=== PATIENT | female | born 1930 | race Hispanic/Latino ===

== ENCOUNTER 2016-11-13 09:21 | Inpatient (IN) | payer MEDICARE, OTHER ==
[2016-11-13 10:02] VITALS: BMI 23.1
--- NOTE | 2016-11-13 10:07 | ED PDOC ---
Arrival/HPI - General Historian: Patient, Family <Alejandro Morales - Last Filed: 11/13/16 14:57> <Pool Jules - Last Filed: 11/13/16 18:08> - General Chief Complaint: Back Pain Time Seen by Provider: 11/13/16 09:45 - History of Present Illness Narrative History of Present Illness (Text): 11/13/16 10:19 86F with PMHx specifically significant for osteoporosis, easy fractures and compression fractures presents to the ED with c/o lower back pain of 3 months duration, worse in the past week. Patient's daughter at bedside providing translation and history. Patient states that she took a trip to [place] a few weeks ago, returned last week. In [place], she had fallen forward out of a reclining chair for which she went to the emergency room, where they found no fractures or acute injury. She got some injections of 'Voltarelli' for pain, and was sent home. [place] the [place] last week. While she was at home last week, she pulled open the refrigerator door and heard a 'pop.' She has been having the current, sharp, 10/10 back pain since that point. Patient has a history of easy fractures. Patient has seen her marine driller only once , had an appointment with her for tomorrow. PMD: Dr. Moy Area Sales Manager: Sharif Alford PMHx: Questionable seizures based on previous visit notes; rest of history as above 11/13/16 10:28 (Alejandro Morales) Past Medical History - Travel History Have you recently traveled outside [place] w/in the past 3 mons?: Yes If Yes, travel location?: [place] - Infectious Disease Hx of Infectious Diseases: None - Tetanus Immunization Tetanus Immunization: Unknown - Reproductive Menopause: Yes - Cardiac Hx Cardiac Disorders: No - Pulmonary Hx Respiratory Disorders: No - Neurological Hx Neurological Disorder: Yes Hx Seizures: Yes - HEENT Hx HEENT Disorder: Yes (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?) - Musculoskeletal/Rheumatological Hx Musculoskeletal Disorders: Yes (KYPHOSIS,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-15 ) Hx Falls: Yes Hx Osteoporosis: Yes - Genitourinary/Gynecological Hx Genitourinary Disorders: (L LUMPECTOMY) - Psychiatric Hx Substance Use: No - Past Surgical History Past Surgical History: No Previous - Anesthesia Hx Anesthesia: No - Suicidal Assessment Feels Threatened In Home Enviroment: No <Alejandro Morales - Last Filed: 11/13/16 14:57> Family/Social History Family/Social History: No Known Family HX Smoking Status: Never Smoked Hx Alcohol Use: No Hx Substance Use: No Hx Substance Use Treatment: No <Alejandro Morales - Last Filed: 11/13/16 14:57> Allergies/Home Meds <Alejandro Morales - Last Filed: 11/13/16 14:57> <Pool Jules - Last Filed: 11/13/16 18:08> Allergies/Adverse Reactions: Allergies No Known Allergies Allergy (Verified 09/06/13 19:30) Home Medications: Home Meds Medication Instructions Recorded Confirmed No Known Home Med [No Known Home 09/06/13 11/13/16 Med] Review of Systems - Review of Systems Constitutional: Normal. absent: Fatigue, Weight Change, Fevers Eyes: Normal. absent: Vision Changes, Photophobia ENT: Normal. absent: Hearing Changes, Sore Throat Respiratory: Normal. absent: SOB, Cough, Sputum Cardiovascular: Normal. absent: Chest Pain, Orthopnea Gastrointestinal: Normal. absent: Abdominal Pain, Stool Changes, Diarrhea, Nausea, Vomiting, Hematochezia, Hematemesis Genitourinary Female: Normal. absent: Dysuria, Hematuria, Vaginal Bleeding Musculoskeletal: Normal, Back Pain (Back pain worse on the right - sharp pain) Skin: Normal. absent: Rash, Pruritis, Skin Lesions Neurological: Normal. absent: Focal Weakness, Gait Changes Endocrine: Normal. absent: Diaphoresis, Polyuria Hemo/Lymphatic: Normal. absent: Adenopathy, Easy Bleeding, Easy Bruising Psychiatric: Normal. absent: Anxiety, Depression, Suicidal Ideation <Alejandro Morales - Last Filed: 11/13/16 14:57> Physical Exam Temperature: Afebrile Blood Pressure: Hypertensive Pulse: Regular Respiratory Rate: Normal Appearance: Positive for: Well-Appearing, Non-Toxic, Comfortable Pain Distress: None Mental Status: Positive for: Alert and Oriented X 3 - Systems Exam Head: Present: Atraumatic, Normocephalic Pupils: Present: PERRL Extroacular Muscles: Present: EOMI Conjunctiva: Present: Normal Mouth: Present: Moist Mucous Membranes Neck: Present: Normal Range of Motion Respiratory/Chest: Present: Clear to Auscultation, Good Air Exchange. No: Respiratory Distress, Accessory Muscle Use Cardiovascular: Present: Regular Rate and Rhythm, Normal S1, S2. No: Murmurs Abdomen: Present: Normal Bowel Sounds. No: Tenderness, Distention, Peritoneal Signs Back: Present: Paraspinal Tenderness, Pain with Leg Raise (Postive straight leg test) Upper Extremity: Present: Normal Inspection. No: Cyanosis, Edema Lower Extremity: Present: Normal Inspection. No: Edema Neurological: Present: GCS=15, CN II-XII Intact, Speech Normal Skin: Present: Warm, Dry, Normal Color. No: Rashes Psychiatric: Present: Alert, Oriented x 3, Normal Insight, Normal Concentration <Alejandro Morales - Last Filed: 11/13/16 14:57> Medical Decision Making <Alejandro Morales - Last Filed: 11/13/16 14:57> <Pool Jules - Last Filed: 11/13/16 18:08> ED Course and Treatment: 11/13/16 10:24 Impression: 86 y/o F with PMHx specifically significant for osteoporosis, easy fracturing, and compression fractures, c/o lower back pain. Compression Fracture VS Muscle Strain Plan: -- CT Lumbar Spine Without Contrast -- Toradol, Lidocaine Patch, and Tylenol for pain --Reassess Prior Visits: Notes and results from previous visits were reviewed. Previously seen for back pain and questionable seizures 11/13/16 13:37 Reassessed patient. Pain is better, but still present. Thoracolumbar CT shows: Compression fracture at T12 and L3. Patient will be admitted Bridge orders submitted 11/13/16 14:57 (Alejandro Morales) In agreement with resident note, which includes further HPI details. Patient was seen and evaluated with resident, came up with plan and treatment together. On physical exam, patient has paraspinal lower lumber tenderness. Differential: r/o fracture vs. lumbar sprain. 11/13/16 13:37 Case was discussed with Dr. Singh who agrees to admit patient for severe compression fractures. Patient is a fall risk. I discussed this plan with patient and her family. (Pool Jules) - RAD Interpretation Radiology Orders: 11/13/16 10:09 LUMBAR SPINE W/O CONTRAST [CT] Stat - Medication Orders Current Medication Orders: Acetaminophen (Tylenol 325mg Tab) 650 mg PO Q4H PRN PRN Reason: Pain, Mild (1-3) Ketorolac Tromethamine (Toradol) 15 mg IM Q6 PRN PRN Reason: Pain, severe (8-10) Tramadol HCl (Ultram) 50 mg PO TID PRN PRN Reason: Pain, moderate (4-7) Discontinued Medications Acetaminophen (Tylenol 325mg Tab) 650 mg PO STAT STA Stop: 11/13/16 10:12 Last Admin: 11/13/16 10:23 Dose: 650 mg Re-Assess: [facility] Pain/Vitals Document 11/13/16 13:55 MJO (Rec: 11/13/16 14:13 MJO [id number]) Pain Reassessment Is This A Pain ReAssessment? Yes Sleep Is patient sleeping during reassessment? No Presence of Pain Presence of Pain No Ketorolac Tromethamine (Toradol) 15 mg IM STAT STA Stop: 11/13/16 10:12 Last Admin: 11/13/16 10:23 Dose: 15 mg Re-Assess: [facility] Pain Assessment Document 11/13/16 11:23 MJO (Rec: 11/13/16 14:14 MJO [id number]) Pain Reassessment Is this a pain reassessment? Yes Sleep Is patient sleeping during reassessment? No Presence of Pain Presence of Pain No Lidocaine (Lidoderm) 1 ea TD STAT STA Stop: 11/13/16 10:10 Last Admin: 11/13/16 10:23 Dose: 1 ea <Alejandro Morales - Last Filed: 11/13/16 14:57> - Scribe Statement The provider has reviewed the documentation as recorded by the Scribe <Pool Jules - Last Filed: 11/13/16 18:08> - Scribe Statement Melani Davenport Provider Scribe Attestation: All medical record entries made by the Scribe were at my direction and personally dictated by me. I have reviewed the chart and agree that the record accurately reflects my personal performance of the history, physical exam, medical decision making, and the department course for this patient. I have also personally directed, reviewed, and agree with the discharge instructions and disposition. (Pool Jules) Disposition/Present on Arrival - Present on Arrival Any Indicators Present on Arrival: No History of DVT/PE: No History of Uncontrolled Diabetes: No Urinary Catheter: No History Surgical Site Infection Following: None - Disposition Have Diagnosis and Disposition been Completed?: Yes Disposition Time: 12:25 <Alejandro Morales - Last Filed: 11/13/16 14:57> - Disposition Patient Plan: Observation <Pool Jules - Last Filed: 11/13/16 18:08> - Disposition Diagnosis: Compression fracture Disposition: HOSPITALIZED Patient Problems: Current Active Problems Problem Status Onset Compression fracture Acute Condition: FAIR
[2016-11-13] MEDS ORDERED: Lidocaine 5% Patch TD STA (10:09)
--- NOTE | 2016-11-13 12:08 | CT ---
PROCEDURE: CT Lumbar Spine without contrast HISTORY: Lower back pain COMPARISON: None. TECHNIQUE: Axial computed tomography images were obtained of the lumbar spine without the use of intravenous contrast. Coronal and sagittal reformatted images were created and reviewed. Radiation dose: Total exam DLP = 245 mGy-cm. This CT exam was performed using one or more of the following dose reduction techniques: Automated exposure control, adjustment of the mA and/or kV according to patient size, and/or use of iterative reconstruction technique. FINDINGS: VERTEBRAE: There is a severe compression fracture of L3. There is minimal retropulsion of bone into the spinal canal with no significant stenosis. There is also a severe compression fracture of T12 without stenosis. The age of these fractures is uncertain. There was a plain film from 08/21/2016 which showed T12 compression but showed no compression of L3 at that time. DISCS/SPINAL CANAL/NEURAL FORAMINA: L1-2: Unremarkable. L2-3: Unremarkable. L3-4: Unremarkable. L4-5: Unremarkable. L5-S1: Unremarkable. PARASPINAL SOFT TISSUES: Unremarkable. OTHER FINDINGS: None. IMPRESSION: Severe compression fractures of T12 and L3. See comments
[2016-11-13 13:19] LABS: BASO # 0.01 K/mm3 (0.0-2.0); BASO % 0.1 % (0.0-3.0); EOS # 0.2 (0.0-0.7); EOS % 2.1 % (1.5-5.0); GRAN # 5.95 (1.4-6.5); GRAN % 74.9 % (50.0-68.0); HEMATOCRIT 38.9 % (36.0-48.0); LYMPH # 1.4 (1.2-3.4); LYMPH % 17.1 % (22.0-35.0); MEAN CELL VOLUME 94.2 fl (80.0-105.0); MEAN CORPUSCULAR HEMOGLOBIN 30.8 pg (25.0-35.0); MEAN CORPUSCULAR HGB CONC 32.6 g/dl (31.0-37.0); MEAN PLATELET VOLUME 10.3 fl (7.0-11.0); MONO # 0.5 (0.1-0.6); MONO % 5.8 % (1.0-6.0); RED CELL DISTRIBUTION WIDTH 13.3 % (11.5-14.5)
[2016-11-13 13:23] LABS: BLOOD UREA NITROGEN 12 mg/dL (7-21); CARBON DIOXIDE 30 mmol/L (21-33); CHLORIDE 103 mmol/L (98-107); GFR AFRICAN-AMERICAN > 60; GLUCOSE,RANDOM 89 mg/dL (70-110); PHOSPHOROUS 3.8 mg/dL (2.5-4.5); POTASSIUM 3.8 mmol/L (3.6-5.0); SODIUM 140 mmol/L (132-148)
[2016-11-13] MEDS ORDERED: Pneumococcal 23-Valent Vaccine IM ONE (19:53)
--- NOTE | 2016-11-14 01:12 | CON ---
DATE: 11/13/2016 REASON FOR CONSULTATION: Lumbar pain. HISTORY OF PRESENT ILLNESS: This is an 86-year-old female who was admitted earlier today with complaints of low back pain. She said that she has had back pain for the last three to four months. She has had a couple of falls, the last fall was in approximately one month ago, when she fell out off a recliner. She subsequently had a pain and that seem to be getting worse over the last couple of days. She was admitted for further evaluation and treatment. She denies any numbness or tingling down the legs. She denies any weakness. She denies any change in her bowel or bladder habits. PHYSICAL EXAMINATION: On neurologic examination, neurologically, she is intact. She is tolerating active range of motion in both her hips without any pain. She has negative straight leg raises bilaterally. She has good blood flow in both lower extremities with both her feet are well perfused. Evaluation of the lumbar spine show no gross deformity. She does have some midline tenderness to palpation. No significant paraspinal tenderness to palpation is appreciated. LABORATORY DATA: She brings a CAT scan that was done, it shows what looks like a T12 and L3 compression fractures, the age of the fracture is undeterminate with at least 50% compression. She does know significant central canal or foraminal stenosis is appreciated. She does have a [place] x-ray, which showed T12 compression fracture, but L3 compression fracture was not visualized at that time. IMPRESSION: T12 and L3 compression fracture. PLAN: At this point, I recommended a lumbar corset for comfort as well as some physical therapy and pain medication. Should she still have pain, we would recommend a consult with interventional radiology or pain management for possible kyphoplasty, so we will followup with her during this admission. Joaquin Vasquez MD
[2016-11-14] MEDS: Lidocaine 5% Patch TD SCH (18:44)
--- NOTE | 2016-11-15 08:12 | CP.PCM.PN ---
Subjective - Date & Time of Evaluation Date of Evaluation: 11/15/16 Time of Evaluation: 08:09 - Subjective Subjective: Pt awake, alert. c/o back pain VSS Neuro intact Ct lumbar spine: T12 compression fx with significant compression > 50% L3 compression deformity >50% no significant canal or foraminal stenosis Recommend PT for mobilization lumbar corset prn Objective - Vital Signs/Intake and Output Vital Signs (last 24 hours): Temp Pulse Resp BP Pulse Ox 98.3 F 67 20 124/68 99 11/15/16 04:00 11/15/16 04:00 11/15/16 04:00 11/15/16 04:00 11/14/16 17:13 Intake and Output: 11/15/16 11/15/16 06:59 18:59 Intake Total 120 Balance 120 - Medications Medications: Current Medications Acetaminophen (Tylenol 325mg Tab) 650 mg PO Q4H PRN PRN Reason: Pain, Mild (1-3) Calcium/Vitamin D (Oscal-D 250 Mg-125 Units Tab) 2 tab PO DAILY [facility] Ketorolac Tromethamine (Toradol) 15 mg IM Q6 PRN PRN Reason: Pain, severe (8-10) Lidocaine (Lidoderm) 1 ea TD DAILY [facility] Last Admin: 11/14/16 18:44 Dose: 1 ea Tramadol HCl (Ultram) 50 mg PO TID PRN PRN Reason: Pain, moderate (4-7) Last Admin: 11/15/16 01:57 Dose: 50 mg
[2016-11-15] MEDS: Calcium-Vit D 250 mg-125 Units Tab UD PO SCH (09:04)
[2016-11-15] MEDS: Lidocaine 5% Patch TD SCH (09:04)
--- NOTE | 2016-11-15 10:39 | HP ---
CHIEF COMPLAINT AND HISTORY OF PRESENT ILLNESS: This is an 86-year-old female who is coming into the hospital with complaints of back pain. She has a past medical history of osteoporosis. She has had fractures in the past. She states that she has been having lower back pain over the last 3 months, but has been worse over the last week. She came into the hospital with a daughter. The patient states that she had taken the trip to [place] and returned about a week ago. In [place], she had a fall out of a chair and then had gone to the emergency room, they had found no fractures when she gone to the emergency room. She had received an injection for her pain and was sent home. [place] came [place] the [place], she states that the pain has been 10/10 and she thinks that she may have heard a pop in her back when she was opening a refrigerator. She has no complaints of any headaches or dizziness. She states that pain medications did help her symptoms. The patient has no nausea, no vomiting, no fevers, no chills, no headaches. She does have difficulty in walking because of the pain. REVIEW OF SYSTEMS: All other review of systems are within normal limits except what is mentioned. FAMILY HISTORY: No significant family history. ALLERGIES: NO KNOWN DRUG ALLERGIES. HOME MEDICATIONS: She is not on any significant medications. SOCIAL HISTORY: She is , lives with her . She does not smoke or drink. PHYSICAL EXAMINATION: VITAL SIGNS: Temperature is 98, pulse of 77, respirations 18, blood pressure 142/77, height is 4 feet 8 inches, weight 103 pounds. BMI is 23.1. GENERAL: The patient lying in bed, uncomfortable, and in no acute distress. HEENT: Atraumatic and normocephalic. Anicteric sclerae. Moist mucosa. Parkway conjunctivae. No oral lesions. NECK: No JVD, anterior and posterior adenopathy, thyromegaly, or bruits. CARDIOVASCULAR: S1 and S2 regular. No murmur, rubs, or gallop. LUNGS: Clear to auscultation bilaterally. No wheezes, rales, or rhonchi. ABDOMEN: Bowel sounds are positive. Soft, nontender and nondistended. No hepatosplenomegaly. No rebound and no guarding. EXTREMITIES: No cyanosis, clubbing, or edema. NEUROLOGIC: No facial asymmetry. Tongue is midline. No uvula deviation. Power is 5/5 upper extremity and lower extremity. Sensation intact in upper extremity and lower extremity. PSYCHIATRIC: She is awake, alert and oriented x3. No anxiety or depression. She has normal affect. GENITOURINARY: No CVA tenderness. VASCULAR: 2+ pulses in the carotid pulses and pedal pulses. SKIN: No erythema or nodules SPINE: Shows normal curvature. EXTREMITIES: No Cyanosis and clubbing, no edema. She has point tenderness in the lower part of the back. LABORATORY DATA: White count is 8.0 and hemoglobin is 12.7. Chemistry shows creatinine is 0.5. DIAGNOSTIC DATA: A CT of the back shows a severe compression fracture of L3. ASSESSMENT: 1. L3 compression fracture. 2. Osteoporosis. 3. Fall. PLAN: The patient is currently comfortable. Pain medications are helping her pain. She was seen by Dr. Vasquez, I appreciate his input. The patient is on Lidoderm patch. She is on Tylenol. She is going to continue with Ultram. She is on a regular diet. The patient was seen by Physical Therapy. We will see if the patient qualified for the transitional care unit. I did speak to the patient's daughter, Siria to give an update as she qualifies to the transitional care unit. We will most likely discharge her there for further pain management and rehabilitation. The patient will need check vitamin D. I have also placed her on calcium and vitamin D for osteoporosis. bisphosphate as an outpatient but was hold off as the patient has an acute fracture. Bradley Pleitez MD
--- NOTE | 2016-11-15 23:31 | CP.PCM.PN ---
Subjective - Date & Time of Evaluation Date of Evaluation: 11/15/16 Time of Evaluation: 09:00 - Subjective Subjective: Complaining of back pain. Compression fracture T12, L3 vertebrae. S/P fall. Able to ambulate. Objective - Vital Signs/Intake and Output Vital Signs (last 24 hours): Temp Pulse Resp BP Pulse Ox 98 F 68 18 123/68 93 L 11/15/16 16:00 11/15/16 16:00 11/15/16 16:00 11/15/16 16:00 11/15/16 16:00 Intake and Output: 11/15/16 11/16/16 18:59 06:59 Intake Total 480 620 Balance 480 620 - Medications Medications: Current Medications Acetaminophen (Tylenol 325mg Tab) 650 mg PO Q4H PRN PRN Reason: Pain, Mild (1-3) Calcium/Vitamin D (Oscal-D 250 Mg-125 Units Tab) 2 tab PO DAILY [facility] Last Admin: 11/15/16 09:04 Dose: 2 tab Ketorolac Tromethamine (Toradol) 15 mg IM Q6 PRN PRN Reason: Pain, severe (8-10) Lidocaine (Lidoderm) 1 ea TD DAILY [facility] Last Admin: 11/15/16 09:04 Dose: 1 ea Tramadol HCl (Ultram) 50 mg PO TID PRN PRN Reason: Pain, moderate (4-7) Last Admin: 11/15/16 19:56 Dose: 50 mg - Constitutional Appears: Chronically Ill - Head Exam Head Exam: ATRAUMATIC, NORMAL INSPECTION, NORMOCEPHALIC - Eye Exam Eye Exam: Normal appearance Pupil Exam: NORMAL ACCOMODATION - ENT Exam ENT Exam: Mucous Membranes Moist, Normal Exam - Neck Exam Neck Exam: Normal Inspection - Respiratory Exam Respiratory Exam: Clear to Ausculation Bilateral, NORMAL BREATHING PATTERN - Cardiovascular Exam Cardiovascular Exam: REGULAR RHYTHM, +S1, +S2 - GI/Abdominal Exam GI & Abdominal Exam: Soft, Normal Bowel Sounds - Extremities Exam Extremities Exam: Normal Capillary Refill, Normal Inspection - Neurological Exam Neurological Exam: Alert, CN II-XII Intact, Oriented x3 - Psychiatric Exam Psychiatric exam: Normal Affect - Skin Skin Exam: Dry, Normal Color, Warm Assessment and Plan - Assessment and Plan (Free Text) Assessment: 1. Compression fracture T12, L3 2. status post fall 3. bacl pain 4. osteoporosis Plan : orhto consult Dr. Holder requested. Note reviewed. Conservative management. pain control with percocet prn. lumbar corset. bedside PT.
[2016-11-16] MEDS: Calcium-Vit D 250 mg-125 Units Tab UD PO SCH (09:34)
[2016-11-16] MEDS: Lidocaine 5% Patch TD SCH (09:34)
[2016-11-16] MEDS ORDERED: Simethicone 80 mg Chewtab PO STA (22:34)
--- NOTE | 2016-11-16 22:34 | CP.PCM.PN ---
Subjective - Date & Time of Evaluation Date of Evaluation: 11/16/16 Time of Evaluation: 22:32 - Subjective Subjective: Patient was seen at bedside. She complained of gas in stomach. Has no other complaints. Denies chest pain, sob, nausea, sweating , palpitations. ROS:Negative except as mentioned above. Medical record was reviewed. This 86 year old woman was admitted with backpain, fall , L3 compression fracture. Has PMH of osteoporosis, multiple fractures. Objective - Vital Signs/Intake and Output Vital Signs (last 24 hours): Temp Pulse Resp BP Pulse Ox 98.7 F 113 H 20 137/71 92 L 11/16/16 16:52 11/16/16 16:52 11/16/16 16:52 11/16/16 16:52 11/16/16 16:52 Intake and Output: 11/16/16 11/17/16 18:59 06:59 Intake Total 480 360 Balance 480 360 - Medications Medications: Current Medications Acetaminophen (Tylenol 325mg Tab) 650 mg PO Q4H PRN PRN Reason: Pain, Mild (1-3) Calcium/Vitamin D (Oscal-D 250 Mg-125 Units Tab) 2 tab PO DAILY [facility] Last Admin: 11/16/16 09:34 Dose: 2 tab Ketorolac Tromethamine (Toradol) 15 mg IM Q6 PRN PRN Reason: Pain, severe (8-10) Lidocaine (Lidoderm) 1 ea TD DAILY [facility] Last Admin: 11/16/16 09:34 Dose: 1 ea Tramadol HCl (Ultram) 50 mg PO TID PRN PRN Reason: Pain, moderate (4-7) Last Admin: 11/16/16 20:11 Dose: 50 mg - Constitutional Appears: Well, No Acute Distress - Head Exam Head Exam: ATRAUMATIC, NORMAL INSPECTION, NORMOCEPHALIC - Eye Exam Eye Exam: Normal appearance - ENT Exam ENT Exam: Normal External Ear Exam - Neck Exam Neck Exam: Normal Inspection - Respiratory Exam Respiratory Exam: NORMAL BREATHING PATTERN - Cardiovascular Exam Cardiovascular Exam: absent: JVD - GI/Abdominal Exam GI & Abdominal Exam: absent: Distended - Rectal Exam Rectal Exam: Deferred - Exam Additional comments: Deferred. - Extremities Exam Extremities Exam: Normal Inspection - Back Exam Back Exam: NORMAL INSPECTION Additional comments: No deformity. - Neurological Exam Neurological Exam: Alert, Awake, Oriented x3 - Psychiatric Exam Psychiatric exam: Normal Affect, Normal Mood - Skin Skin Exam: Normal Color Assessment and Plan - Assessment and Plan (Free Text) Assessment: Gas pains. Back pain. L3 compression fracture. Osteoporosis. Hx multiple fractures. Plan: Simethicone 80 mg PO stat. Continue present management.
[2016-11-17 08:30] VITALS: BP 125/75; PULSE 73; RESP 18; TEMP 98.1; O2SAT 94
[2016-11-17] MEDS: Calcium-Vit D 250 mg-125 Units Tab UD PO SCH (09:44)
[2016-11-17] MEDS: Lidocaine 5% Patch TD SCH (09:44)
[2016-11-17] MEDS ORDERED: POLYETHYLENE GLYCOL 3350 17 GM/Dose PACKET PO SCH (13:00)
--- NOTE | 2016-11-20 19:16 | CP.PCM.PN ---
Subjective - Date & Time of Evaluation Date of Evaluation: 11/16/16 Time of Evaluation: 10:00 - Subjective Subjective: Comfortable in chair.Pain on turning or bending. Able to ambulate without difficulty. Abdominal corset with patient. No wearing. Objective - Vital Signs/Intake and Output Vital Signs (last 24 hours): Temp Pulse Resp BP Pulse Ox 98.1 F 73 18 125/75 94 L 11/17/16 08:29 11/17/16 08:11/17/16 08:11/17/16 08:11/17/16 08:29 - Constitutional Appears: Well, Non-toxic - Head Exam Head Exam: ATRAUMATIC, NORMAL INSPECTION, NORMOCEPHALIC - Eye Exam Eye Exam: Normal appearance Pupil Exam: NORMAL ACCOMODATION, PERRL - ENT Exam ENT Exam: Mucous Membranes Moist, Normal Exam - Neck Exam Neck Exam: Normal Inspection - Respiratory Exam Respiratory Exam: Clear to Ausculation Bilateral, NORMAL BREATHING PATTERN - Cardiovascular Exam Cardiovascular Exam: REGULAR RHYTHM, +S1, +S2 - GI/Abdominal Exam GI & Abdominal Exam: Soft, Normal Bowel Sounds - Extremities Exam Extremities Exam: Normal Capillary Refill, Normal Inspection - Back Exam Back Exam: NORMAL INSPECTION - Neurological Exam Neurological Exam: Alert, Awake, CN II-XII Intact, Normal Gait, Oriented x3 - Psychiatric Exam Psychiatric exam: Normal Mood - Skin Skin Exam: Normal Color, Warm Assessment and Plan - Assessment and Plan (Free Text) Assessment: Assessment: 1. Compression fracture T12, L3 2. status post fall 3. back pain 4. osteoporosis 5. Granulocytosis Plan : orhto reccomendations - Conservative management. pain control with percocet prn. lumbar corset bedside. advised to wear. bedside PT. discharge planning.
--- NOTE | 2016-11-20 20:13 | DS ---
DATE: 11/17/2016 DISCHARGE DIAGNOSES: 1. Compression fracture, T12-L3. 2. Status post fall. 3. Chronic back pain. 4. Osteoporosis. 5. Granulocytosis. HOSPITAL COURSE: The patient was admitted with new compression fracture of vertebra. Ortho consultation for Dr. Vasquez is requested. Conservative management was recommended and she was advised to bear the lumbar corset. Bedside physical therapy was provided. Pain was controlled with Percocet. She was able to ambulate without difficulty during hospitalization. PHYSICAL EXAMINATION AT DISCHARGE: GENERAL: Comfortable in bed, in no acute distress. VITAL SIGNS: Temperature 98.7, heart rate 80 per minute, respiratory rate 16 per minute. HEENT: Oral mucosa moist. NECK: Supple. No lymphadenopathy. CHEST: Air entry present and equal bilateral. No added sound. CARDIOVASCULAR: S1 and S2 normal. No murmur and no gallop. ABDOMEN: Soft and nontender. No hepatosplenomegaly. EXTREMITIES: No edema. LABORATORY DATA: White count 8000, hemoglobin is 12.7, hematocrit 38.9, platelet count 240, granulocyte 74% and lymphocyte 17%. Sodium 140, potassium 3.8 and creatinine 0.5. CONDITION ON DISCHARGE: Stable. DISCHARGE DISPOSITION: Discharged home. DIET: Regular. MEDICATIONS: Continue home medications: Tylenol 650 q. 4 hours p.r.n.; Percocet 10 mg q. 6 hours p.r.n., prescription given for 15 tablet; Colace 100 mg p.o. b.i.d.; calcium and vitamin D and Lidoderm patch as needed. Advised to follow up with Dr. Moy in 1 week, advised to follow up with Dr. Vasquez. Discussed with the daughter at length. She wants the patient to go to subacute rehab. Physical therapy cleared the patient for discharge home as she could walk without any problem. Discussed with the outsole caser. He had a meeting with the daughter, with skilled nursing case manager, explained to the daughter that she does not qualify for subacute rehab right now. She agreed to take the patient home. Discussed with the staff nurse, discussed with the patient, discussed with the daughter and discussed with the skilled nursing case manager. Time spent in preparing discharge and coordinating care 55 minutes. Ashley Go MD
== END 2016-11-17 15:42 | disposition home health service (06) | DRG 544 ==
LOC: ED 09:21 → ERH 12:25 → 5RSO 13:49 → OBSVTOIN 11-14 22:51 → 5RNO 11-15 10:58
PROVIDERS: ADMIT Internal Medicine Nephrology; ATTEND Internal Medicine Nephrology
DX: M48.56XA Collapsed vertebra, not elsewhere classified, lumbar region, initial encounter for fracture (principal); R26.2 Difficulty in walking, not elsewhere classified; M81.0 Age-related osteoporosis without current pathological fracture; Z91.81 History of falling; M40.209 Unspecified kyphosis, site unspecified; Z86.69 Personal history of other diseases of the nervous system and sense organs; R40.2412 Glasgow coma scale score 13-15, at arrival to emergency department; M48.54XD Collapsed vertebra, not elsewhere classified, thoracic region, subsequent encounter for fracture with routine healing

== ENCOUNTER 2017-01-04 14:09 | Inpatient (IN) | payer MEDICARE, OTHER ==
--- NOTE | 2017-01-04 15:43 | ED PDOC ---
Arrival/HPI <Nilsa Roman - Last Filed: 01/04/17 22:43> - General Historian: Patient, Family - History of Present Illness Symptom Onset: Gradual Symptom Course: Worsening Quality: Aching, Throbbing <Melissa Jasmine - Last Filed: 01/05/17 00:38> - General Chief Complaint: Shortness Of Breath Time Seen by Provider: 01/04/17 14:59 - History of Present Illness Narrative History of Present Illness (Text): 01/04/17 15:33 86yr old female presents today with sob and cough. pt with low back pain s/p epidural 2 days ago for compression fractures. no cp. pt c/o upper abdominal pain. c/o cough. c/o bilateral leg swelling. family states patient hasn't been as active as usual since compression fractures of back. no dizziness or weakness. c/o bilateral lower leg pain. no headache. no n/v/d. (Melissa Jasmine) Past Medical History - Provider Review Nursing Documentation Reviewed: Yes - Travel History Have you recently traveled outside [place] w/in the past 3 mons?: No - Infectious Disease Hx of Infectious Diseases: None - Tetanus Immunization Tetanus Immunization: Unknown - Cardiac Hx Cardiac Disorders: No Hx Peripheral Edema: Yes (ble+1) - Pulmonary Hx Respiratory Disorders: No - Neurological Hx Neurological Disorder: Yes Hx Seizures: (family uncertain) - HEENT Hx HEENT Disorder: Yes Hx Macular Degeneration: Yes Other/Comment: injections to eye once amonth for macular degeneration - Renal Hx Renal Disorder: No - Endocrine/Metabolic Hx Endocrine Disorders: No - Hematological/Oncological Hx Blood Disorders: No - Integumentary Hx Dermatological Disorder: No - Musculoskeletal/Rheumatological Hx Musculoskeletal Disorders: Yes (KYPHOSIS,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- ) Hx Arthritis: Yes Hx Falls: Yes (fell recently in [place]) Hx Unsteady Gait: Yes - Gastrointestinal Hx Gastrointestinal Disorders: No - Genitourinary/Gynecological Hx Genitourinary Disorders: (L LUMPECTOMY benign over 20 yrs ago) - Psychiatric Hx Psychophysiologic Disorder: No Hx Substance Use: No - Past Surgical History Past Surgical History: No Previous - Anesthesia Hx Anesthesia: No - Suicidal Assessment Feels Threatened In Home Enviroment: No <Melissa Jasmine - Last Filed: 01/05/17 00:38> Family/Social History - Physician Review Nursing Documentation Reviewed: Yes Family/Social History: Unknown Family HX Smoking Status: Unknown If Ever Smoked Hx Alcohol Use: No Hx Substance Use: No Hx Substance Use Treatment: No <Melissa Jasmine - Last Filed: 01/05/17 00:38> Allergies/Home Meds <Nilsa Roman - Last Filed: 01/04/17 22:43> <Melissa Jasmine - Last Filed: 01/05/17 00:38> Allergies/Adverse Reactions: Allergies No Known Allergies Allergy (Unverified 01/04/17 14:59) Home Medications: Home Meds Medication Instructions Recorded Confirmed Unobtainable 01/04/17 01/04/17 Review of Systems - Review of Systems Constitutional: Fevers. absent: Fatigue ENT: absent: Sinus Congestion Respiratory: SOB, Cough Cardiovascular: absent: Chest Pain, Palpitations Gastrointestinal: Abdominal Pain. absent: Constipation, Diarrhea, Nausea, Vomiting Genitourinary Female: absent: Dysuria, Frequency, Hematuria Musculoskeletal: Back Pain. absent: Arthralgias, Neck Pain Skin: absent: Rash, Pruritis Neurological: absent: Headache, Dizziness Psychiatric: absent: Anxiety <Melissa Jasmine - Last Filed: 01/05/17 00:38> Physical Exam Vital Signs Reviewed: Yes Temperature: Afebrile Blood Pressure: Normal Pulse: Regular Respiratory Rate: Normal Appearance: Positive for: Well-Appearing, Non-Toxic, Comfortable Pain Distress: None Mental Status: Positive for: Alert and Oriented X 3 - Systems Exam Head: Present: Atraumatic Mouth: Present: Moist Mucous Membranes Neck: Present: Normal Range of Motion Respiratory/Chest: Present: Good Air Exchange, Rales, Rhonchi, Tachypneic. No: Clear to Auscultation, Respiratory Distress, Accessory Muscle Use, Wheezes, Tender to Palpation Cardiovascular: Present: Regular Rate and Rhythm. No: Tachycardic, Muffled Abdomen: Present: Tenderness (minimal epigastric tenderness, ruq, luq tenderness ), Normal Bowel Sounds. No: Distention, Peritoneal Signs, Rebound, Guarding Back: Present: Normal Inspection, Other (no erythema or tendernes around epidural site. ). No: Midline Tenderness, Paraspinal Tenderness Upper Extremity: Present: Normal ROM Lower Extremity: Present: CALF TENDERNESS, NORMAL PULSES, Normal ROM, Tenderness , Swelling, Neurovascularly Intact, Capillary Refill < 2 s. No: Erythema, Deformity Neurological: Present: GCS=15 Skin: Present: Warm, Dry, Normal Color. No: Rashes Psychiatric: Present: Alert, Oriented x 3 <Melissa Jasmine T - Last Filed: 01/05/17 00:38> Vital Signs Temp Pulse Resp BP Pulse Ox 01/04/17 21:58 77 18 142/60 98 01/04/17 17:30 98.1 F 83 20 133/69 01/04/17 15:55 20 01/04/17 15:04 98.4 F 01/04/17 14:36 98.0 F 84 17 123/52 L 98 Medical Decision Making <Nilsa Roman - Last Filed: 01/04/17 22:43> <Melissa Jasmine - Last Filed: 01/05/17 00:38> ED Course and Treatment: 01/04/17 15:54 86yr old female with cough and sob and back pain with hx of compression fracture. cbc wnl cmp wnl trop wnl vbg; wnl ekg; NSR at 88BPM no st elevations; normal axis, normal intervals. cxr: no infiltrate bnp: wnl venous duplex b/l lower legs; FINDINGS: The visualized deep venous systems of both lower extremities are sonographically normal and compressible. Normal wave forms and augmentation are seen. There is no sonographic evidence for deep venous thrombosis in the visualized segments of both lower extremities. IMPRESSION: No sonographic evidence for deep venous thrombosis in the visualized segments of both lower extremities. CT: FINDINGS: Lower thorax: Mild atelectatic changes are identified at the lung bases. There is coronary artery calcification. ABDOMEN: Liver: Unremarkable. No mass. Gallbladder and bile ducts: The gallbladder is mildly distended, without discrete gallstones. Pancreas: Atrophic changes are identified of the pancreas. Spleen: No splenomegaly. Adrenals: There is a stable hypodense left adrenal nodule measuring 2.1 x 1.8 cm. This is suggestive of an adenoma. Kidneys and ureters: No obstructing stones. No hydronephrosis. Stomach and bowel: Significant material is identified within the colon. No significant small bowel distention. Appendix: No findings to suggest acute appendicitis. PELVIS: Bladder: No stones. Reproductive: Unremarkable as visualized. ABDOMEN and PELVIS: Intraperitoneal space: There is minimal free fluid within the pelvis. Bones/joints: Severe compression fractures are identified at the T12 and L3 vertebral levels, with mild compression fractures at L1, L2, L5, and T11. There is a mild progressive loss of vertebral height at the L1 vertebral level. Osteopenia. Hypertrophic degenerative changes are noted within the spine. Soft tissues:A prominent calcification is visualized within the right breast. Vasculature: There is atherosclerotic calcification of the abdominal aorta. No abdominal aortic aneurysm. Lymph nodes: Small retroperitoneal lymph nodes are identified, without significant lymphadenopathy. There is no significant intrapelvic lymphadenopathy. IMPRESSION: 1. There is a stable hypodense left adrenal nodule measuring 2.1 x 1.8 cm. This is suggestive of an adenoma. 2. There is minimal free fluid within the pelvis. 3. Severe compression fractures are identified at the T12 and L3 vertebral levels, with mild compression fractures at L1, L2, L5, and T11. There is a mild progressive loss of vertebral height at the L1 vertebral level. 4. The gallbladder is mildly distended, without discrete gallstones. 5. Incidental/non-acute findings are described above. with morphine; pt with slight improvement in pain. case discussed with dr. lloyd; accepts admission for intractable back pain, abdominal pain, distended gb. will consult dr. springer. impression: intractable back pain, abdominal pain admit remote tele (Melissa Jasmine) - Lab Interpretations Lab Results: 01/04/17 15:40 01/04/17 15:40 Lab Results 01/04/17 16:45: Urine Color Yellow, Urine Appearance Clear, Urine pH 7.5, Ur Specific Friendly 1.010, Urine Protein Negative, Urine Glucose (UA) Negative, Urine Ketones Negative, Urine Blood Negative, Urine Nitrate Negative, Urine Bilirubin Negative, Urine Urobilinogen 0.2, Ur Leukocyte Esterase Trace H, Urine RBC 0 - 2, Urine WBC 2 - 5, Ur Epithelial Cells 3 - 4 01/04/17 15:40: pO2 115 H, VBG pH 7.32, VBG pCO2 64.0 H, VBG HCO3 33.0 H, VBG Total CO2 35.0 H, VBG O2 Sat (Calc) 99.4 H, VBG Base Excess 4.9 H, VBG Potassium 4.0, Sodium 139.0, Chloride 105.0, Glucose 113 H, Lactate 1.2, FiO2 21.0, Venous Blood Potassium 4.0 01/04/17 15:40: WBC 8.7, RBC 3.88, Hgb 11.9 L, Hct 37.5, MCV 96.6, MCH 30.7, MCHC 31.7, RDW 13.7, Plt Count 268, MPV 10.7, Gran % 75.5 H, Lymph % (Auto) 13.1 L, [place] % (Auto) 8.6 H, Eos % (Auto) 2.5, Baso % (Auto) 0.3, Gran # 6.57 H , Lymph # 1.1 L, [place] # 0.8 H, Eos # 0.2, Baso # 0.03 01/04/17 15:40: Sodium 141, Chloride 103, Potassium 3.9, Carbon Dioxide 31, Anion Gap 11, BUN 14, Creatinine 0.5 L, Est GFR ( Amer) > 60, Est GFR ( Non-Af Amer) > 60, Random Glucose 112 H, Calcium 8.7, Total Bilirubin 0.8, AST 22, ALT 29, Alkaline Phosphatase 73, Lactate Dehydrogenase 451, Total Creatine Kinase 26 L, Troponin I < 0.01, NT-Pro-B Natriuret Pep 294, Total Protein 6.5, Albumin 3.7, Globulin 2.8, Albumin/Globulin Ratio 1.3, Lipase 17 L - RAD Interpretation Radiology Orders: 01/04/17 14:59 CHEST PORTABLE [RAD] Stat 01/04/17 15:32 DUPLEX LOWER EXTRM VEIN BILAT [US] Stat 01/04/17 16:08 ABD & PELVIS W/O PO OR IV CONT [CT] Stat - Medication Orders Current Medication Orders: Discontinued Medications Morphine Sulfate (Morphine) 1 mg IVP STAT STA Stop: 01/04/17 16:42 Last Admin: 01/04/17 17:06 Dose: 1 mg REAGAN Pain Assessment Document 01/04/17 17:06 MB (Rec: 01/04/17 17:25 MB [id number]) Pain Reassessment Is this a pain reassessment? No Sleep Is patient sleeping during reassessment? No Presence of Pain Presence of Pain Yes Pain Scale Used Pain Scale Used Numeric Location Left, Right or Bilateral Bilateral Pain Location Body Site Abdomen Description Description Constant Intensity of Pain at present 6 Acceptable Level of Pain 0 Pain Behavior Facial Grimacing Aggravating Factors Changing Position Alleviating Factors/Management Medication Techniques Alleviating Factors Medication IVP Administration Document 01/04/17 17:06 MB (Rec: 01/04/17 17:25 MB [id number]) Charges for Administration # of IVP Administrations 1 Re-Assess: REAGAN Pain Assessment Document 01/04/17 18:06 SZA (Rec: 01/04/17 18:31 SZA [id number]) Pain Reassessment Is this a pain reassessment? Yes Sleep Is patient sleeping during reassessment? No Presence of Pain Presence of Pain Yes Pain Scale Used Pain Scale Used Numeric Description Intensity of Pain at present 3 Morphine Sulfate (Morphine) 1 mg IVP STAT STA Stop: 01/04/17 21:51 Last Admin: 01/04/17 22:18 Dose: 1 mg [facility] Pain Assessment Document 01/04/17 22:18 JOL (Rec: 01/04/17 22:19 JOL [id number]) Pain Reassessment Is this a pain reassessment? No Sleep Is patient sleeping during reassessment? No Presence of Pain Presence of Pain Yes Pain Scale Used Pain Scale Used Numeric Location Upper or Lower Lower Pain Location Body Site Back Description Intensity of Pain at present 8 Pain Behavior Restlessness Facial Grimacing IVP Administration Document 01/04/17 22:18 JOL (Rec: 01/04/17 22:19 JOL [id number]) Charges for Administration # of IVP Administrations 1 Disposition/Present on Arrival - Disposition Have Diagnosis and Disposition been Completed?: Yes Disposition Time: 22:43 Patient Plan: Admission <Nilsa Roman - Last Filed: 01/04/17 22:43> - Present on Arrival Any Indicators Present on Arrival: No History of DVT/PE: No History of Uncontrolled Diabetes: No Urinary Catheter: No History of Decub. Ulcer: No History Surgical Site Infection Following: None - Disposition Have Diagnosis and Disposition been Completed?: Yes Patient Plan: Admission <Melissa Jasmine - Last Filed: 01/05/17 00:38> - Disposition Diagnosis: Abdominal pain, Back pain Disposition: HOSPITALIZED Patient Problems: Current Active Problems Problem Status Onset Abdominal pain Acute Back pain Acute Condition: FAIR
[2017-01-04 16:31] LABS: VENOUS BLOOD GAS BASE EXCESS 4.9 mmol/L (0.0-2.0); VENOUS BLOOD PH 7.32 (7.32-7.43)
[2017-01-04 16:34] LABS: BASO # 0.03 K/mm3 (0.0-2.0); BASO % 0.3 % (0.0-3.0); EOS # 0.2 (0.0-0.7); EOS % 2.5 % (1.5-5.0); GRAN # 6.57 (1.4-6.5); GRAN % 75.5 % (50.0-68.0); HEMATOCRIT 37.5 % (36.0-48.0); LYMPH # 1.1 (1.2-3.4); LYMPH % 13.1 % (22.0-35.0); MEAN CELL VOLUME 96.6 fl (80.0-105.0); MEAN CORPUSCULAR HEMOGLOBIN 30.7 pg (25.0-35.0); MEAN CORPUSCULAR HGB CONC 31.7 g/dl (31.0-37.0); MEAN PLATELET VOLUME 10.7 fl (7.0-11.0); MONO # 0.8 (0.1-0.6); MONO % 8.6 % (1.0-6.0); RED CELL DISTRIBUTION WIDTH 13.7 % (11.5-14.5); WHITE BLOOD COUNT 8.7 10^3/ul (4.5-11.0)
[2017-01-04] MEDS ORDERED: Morphine 2 mg/ml ISec IVP STA ×2 (16:41→21:50)
[2017-01-04 16:44] LABS: ALB/GLOB RATIO 1.3 (1.1-1.8); ALKALINE PHOSPHATASE 73 U/L (38-126); ALT/SGPT 29 U/L (7-56); AST/SGOT 22 U/L (14-36); BILIRUBIN,TOTAL 0.8 mg/dL (0.2-1.3); BLOOD UREA NITROGEN 14 mg/dL (7-21); CALCIUM 8.7 mg/dL (8.4-10.5); CARBON DIOXIDE 31 mmol/L (21-33); CHLORIDE 103 mmol/L (98-107); GFR AFRICAN-AMERICAN > 60; GLUCOSE,RANDOM 112 mg/dL (70-110); LIPASE 17 U/L (23-300); POTASSIUM 3.9 mmol/L (3.6-5.0); SODIUM 141 mmol/L (132-148); TOTAL PROTEIN 6.5 g/dL (5.8-8.3)
[2017-01-04 17:03] LABS: TROPONIN I < 0.01 ng/mL
[2017-01-04 17:30] LABS: PH,URINE 7.5 (4.7-8.0); URINE BILIRUBIN NEGATIVE (NEGATIVE); URINE BLOOD NEGATIVE (NEGATIVE); URINE GLUCOSE (UA) NEGATIVE (NEGATIVE); URINE KETONE NEGATIVE (NEGATIVE); URINE LEUKOCYTE ESTERASE TRACE Leu/uL (NEGATIVE); URINE PROTEIN NEGATIVE mg/dL (<30 mg/dL); URINE UROBILINOGEN 0.2 E.U./dL (<1 E.U./dL)
[2017-01-04 17:40] LABS: URINE APPEARANCE CLEAR (CLEAR); URINE COLOR YELLOW (YELLOW)
[2017-01-04 17:49] LABS: URINE RBC 0 - 2 /hpf (0-2)
--- NOTE | 2017-01-04 19:12 | US ---
HISTORY: Leg pain and swelling. Evaluate for DVT PHYSICIAN(S): Steven Kurtz MD. TECHNIQUE: Duplex sonography and color-flow Doppler with graded compression were used to evaluate the deep venous systems of both lower extremities. FINDINGS: The visualized deep venous systems of both lower extremities are sonographically normal and compressible. Normal wave forms and augmentation are seen. There is no sonographic evidence for deep venous thrombosis in the visualized segments of both lower extremities. IMPRESSION: No sonographic evidence for deep venous thrombosis in the visualized segments of both lower extremities.
--- NOTE | 2017-01-04 21:56 | CT ---
EXAM: CT Abdomen and Pelvis Without Intravenous Contrast EXAM DATE/TIME: 01/04/2017 7:26 PM CLINICAL HISTORY: The patient age is 86 years old and is female; Pain; Abdominal pain; Generalized TECHNIQUE: Axial computed tomography images of the abdomen and pelvis without intravenous contrast. All CT scans at this facility use one or more dose reduction techniques, viz.: automated exposure control; ma/kV adjustment per patient size (including targeted exams where dose is matched to indication; i.e. head); or iterative reconstruction technique. Coronal and sagittal reformatted images were created and reviewed. COMPARISON: CT - LUMBAR SPINE W/O CONTRAST 2016-11-13 10:36 FINDINGS: Lower thorax: Mild atelectatic changes are identified at the lung bases. There is coronary artery calcification. ABDOMEN: Liver: Unremarkable. No mass. Gallbladder and bile ducts: The gallbladder is mildly distended, without discrete gallstones. Pancreas: Atrophic changes are identified of the pancreas. Spleen: No splenomegaly. Adrenals: There is a stable hypodense left adrenal nodule measuring 2.1 x 1.8 cm. This is suggestive of an adenoma. Kidneys and ureters: No obstructing stones. No hydronephrosis. Stomach and bowel: Significant material is identified within the colon. No significant small bowel distention. Appendix: No findings to suggest acute appendicitis. PELVIS: Bladder: No stones. Reproductive: Unremarkable as visualized. ABDOMEN and PELVIS: Intraperitoneal space: There is minimal free fluid within the pelvis. Bones/joints: Severe compression fractures are identified at the T12 and L3 vertebral levels, with mild compression fractures at L1, L2, L5, and T11. There is a mild progressive loss of vertebral height at the L1 vertebral level. Osteopenia. Hypertrophic degenerative changes are noted within the spine. Soft tissues:A prominent calcification is visualized within the right breast. Vasculature: There is atherosclerotic calcification of the abdominal aorta. No abdominal aortic aneurysm. Lymph nodes: Small retroperitoneal lymph nodes are identified, without significant lymphadenopathy. There is no significant intrapelvic lymphadenopathy. IMPRESSION: 1. There is a stable hypodense left adrenal nodule measuring 2.1 x 1.8 cm. This is suggestive of an adenoma. 2. There is minimal free fluid within the pelvis. 3. Severe compression fractures are identified at the T12 and L3 vertebral levels, with mild compression fractures at L1, L2, L5, and T11. There is a mild progressive loss of vertebral height at the L1 vertebral level. 4. The gallbladder is mildly distended, without discrete gallstones. 5. Incidental/non-acute findings are described above.
[2017-01-04] MEDS ORDERED: Morphine 2 mg/ml ISec ONE (21:57)
[2017-01-05 03:39] VITALS: BMI 20.2
[2017-01-05] MEDS ORDERED: Pneumococcal 23-Valent Vaccine IM ONE (03:39)
[2017-01-05] MEDS ORDERED: Influenza Vaccine 60 mcg/0.5 mL SYR (4YR UP) IM ONE (03:39)
--- NOTE | 2017-01-05 09:44 | US ---
HISTORY: abd pain,distended GB COMPARISON: None. TECHNIQUE: Sonographic evaluation of the abdomen. FINDINGS: LIVER: Measures 12.5 cm. Normal echogenicity of the liver parenchyma. No mass. No intrahepatic bile duct dilatation. Normal hepatopetal portal venous flow GALLBLADDER: Cholelithiasis. No mural thickening. No pericholecystic fluid. Negative sonographic Sanchez sign. COMMON BILE DUCT: Measures 6 mm. No stones. No dilatation. PANCREAS: Unremarkable as visualized. No mass. No ductal dilatation. RIGHT KIDNEY: Measures 10.6cm. Normal echogenicity. No calculus, mass, or hydronephrosis. LEFT KIDNEY: Measures 10.2cm. Normal echogenicity. No calculus, mass, or hydronephrosis. SPLEEN: Normal in size and contour. No mass. AORTA: No aneurysmal dilatation. IVC: Unremarkable. OTHER FINDINGS: None. IMPRESSION: Cholelithiasis without sonographic evidence of cholecystitis. Otherwise unremarkable examination.
--- NOTE | 2017-01-05 11:14 | CP.PCM.HP ---
<Cinthia Mcconnell - Last Filed: 01/05/17 11:47> History of Present Illness - History of Present Illness History of Present Illness: PGY-[address] h&p [address] Pleitez 86 year old female with PMH of macular degeneration, falls with compression fracture presents today with abd pain, sob and cough. Patient states that earlier this week she had an epidural injection for her low back pain due to the compression fractures. Since then she has been having pain on her sides, left greater then right. The pain is located in the upper abd and lower ribs. She denies chest pain. Patient states that the sob is due to the pain. Patient states that its painful every time she takes a deep breath. Patient denies recent trauma but did fall a few months ago. Per ED note, family states patient hasn't been as active as usual since compression fractures of back. She denies dizziness or weakness, lower extremity numbness, tingling, headache, n&v, diarrhea, constipation. PMh: macular degeneration, falls with compression fracture PSH: lumpectomy social history: denies smoking, alcohol use, illicit drug use famil hx: daughter has cancer allergy: NKDA home meds: percocet prn Present on Admission - Present on Admission Any Indicators Present on Admission: No Review of Systems - Constitutional Constitutional: absent: Fatigue, Headache, Lethargy - EENT Eyes: absent: Change in Vision - Cardiovascular Cardiovascular: absent: Chest Pain, Dyspnea, Palpitations, Syncope - Respiratory Respiratory: Cough, Pain on Inspiration. absent: Dyspnea - Gastrointestinal Gastrointestinal: Abdominal Pain. absent: Constipation, Diarrhea, Nausea, Vomiting - Genitourinary Genitourinary: absent: Dysuria, Hematuria - Musculoskeletal Musculoskeletal: Back Pain. absent: Muscle Weakness, Neck Pain, Numbness - Integumentary Integumentary: absent: Pruritus, Rash, Skin Ulcer, Sores - Neurological Neurological: absent: Dizziness, Numbness, Focal Weakness, Headaches, Weakness - Hematologic/Lymphatic Hematologic: absent: Easy Bleeding, Easy Bruising Past Patient History - Infectious Disease Hx of Infectious Diseases: None - Tetanus Immunizations Tetanus Immunization: Unknown - Past Social History Smoking Status: Never Smoked - CARDIAC Hx Cardiac Disorders: No Hx Peripheral Edema: Yes (ble+1) - PULMONARY Hx Respiratory Disorders: No - NEUROLOGICAL Hx Neurological Disorder: Yes Hx Seizures: (family uncertain) - HEENT Hx HEENT Problems: Yes Hx Macular Degeneration: Yes Other/Comment: injections to eye once amonth for macular degeneration - RENAL Hx Chronic Kidney Disease: No - ENDOCRINE/METABOLIC Hx Endocrine Disorders: No - HEMATOLOGICAL/ONCOLOGICAL Hx Blood Disorders: No - INTEGUMENTARY Hx Dermatological Problems: Yes Other/Comment: SKIN CANCER AROUND EYES - MUSCULOSKELETAL/RHEUMATOLOGICAL Hx Musculoskeletal Disorders: Yes (KYPHOSIS,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- ) Hx Arthritis: Yes Hx Falls: Yes Hx Unsteady Gait: Yes - GASTROINTESTINAL Hx Gastrointestinal Disorders: No - GENITOURINARY/GYNECOLOGICAL Hx Genitourinary Disorders: (L LUMPECTOMY benign over 20 yrs ago) - PSYCHIATRIC Hx Psychophysiologic Disorder: No Hx Substance Use: No - SURGICAL HISTORY Hx Surgeries: No Other/Comment: REMOVAL OF SKIN CANCER ON FACE - ANESTHESIA Hx Anesthesia: No Meds Allergies/Adverse Reactions: Allergies Allergy/AdvReac Type Severity Reaction Status Date / Time No Known Allergies Allergy Unverified 01/04/17 14:59 Physical Exam - Constitutional Appears: No Acute Distress - Head Exam Head Exam: ATRAUMATIC, NORMAL INSPECTION, NORMOCEPHALIC - Eye Exam Eye Exam: EOMI, Normal appearance - ENT Exam ENT Exam: Mucous Membranes Moist - Respiratory Exam Respiratory Exam: Clear to Auscultation Bilateral, NORMAL BREATHING PATTERN. absent: Rhonchi, Wheezes, Respiratory Distress - Cardiovascular Exam Cardiovascular Exam: REGULAR RHYTHM, +S1, +S2. absent: Tachycardia, Systolic Murmur Additional comments: tenderness to palpitation left side at level of rib 10 - GI/Abdominal Exam GI & Abdominal Exam: Normal Bowel Sounds, Soft, Tenderness. absent: Distended, Firm - Extremities Exam Extremities exam: Positive for: normal inspection. Negative for: pedal edema, tenderness - Neurological Exam Neurological exam: Alert, Oriented x3 - Skin Skin Exam: Dry, Intact, Normal Color, Warm Results - Vital Signs Recent Vital Signs: Last Vital Signs Temp 97.6 F 01/05/17 06:00 Pulse 89 01/05/17 06:00 Resp 22 01/05/17 06:00 BP 145/77 01/05/17 06:00 Pulse Ox 99 01/05/17 06:00 - Labs Result Diagrams: 01/04/17 15:40 01/04/17 15:40 Assessment & Plan - Assessment and Plan (Free Text) Assessment: 86 year old female with PMH of macular degeneration, falls with compression fracture presents today with abd pain, sob and cough. Plan: 1. abd pain - CT abd showed stable hypodense left adrenal nodule measuring 2.1 x 1.8 cm, Severe compression fractures, gallbladder is mildly distended, without discrete gallstones. (refer to full report) - abd US pending - LE US was negative for DVT - CXR reviewed showed no active disease - percocet for pain control - GI consulted <Bradley Pleitez - Last Filed: 01/05/17 19:54> Results - Vital Signs Recent Vital Signs: Last Vital Signs Temp 97.9 F 01/05/17 16:00 Pulse 80 01/05/17 16:00 Resp 19 01/05/17 16:00 BP 120/75 01/05/17 16:00 Pulse Ox 95 01/05/17 16:00 - Labs Result Diagrams: 01/04/17 15:40 01/04/17 15:40 Assessment & Plan - Assessment and Plan (Free Text) Plan: Pt is seen and examined. Note of senior medical technologist reviewed and I am in agree with it. Reviewed Labs and medications. Reviewed notes. GI evaluation appreciated. Pain is controlled.
--- NOTE | 2017-01-05 13:35 | CP.PCM.CON ---
<Corin Mckenzie - Last Filed: 01/05/17 13:35> History of Present Illness - History of Present Illness History of Present Illness: Seen and examined at the bedside earlier this morning, the chart was reviewed. Request for GI consult is for distended gallbladder. HPI: this is an 86-year-old female with a past medical history of compression fractures and chronic low back pain status post epidural injection 2 days ago. Patient came to the hospital with complaints of coughing and shortness of breath. The patient also complained of upper abdominal pain, currently this morning the patient denies any nausea, vomiting, or abdominal pain. She complains of back pain. No reports of fever or chills. Patient had a CT scan of abdomen and report was reviewed noted to have a gall, stable hypodense left adrenal nodule and fecal material in the colon Past medical history:compression fracture, epidural, macular degenerati, left lumpectomy that was benign over 20 years ago Allergies :no known drug allergies Family history: Noncontributory Medications: Reviewed as per MAR Social history: Denies smoking, ETOH, drugs ROS: Systems reviewed with positive findings, see HPI Past Patient History - Infectious Disease Hx of Infectious Diseases: None - Tetanus Immunizations Tetanus Immunization: Unknown - Past Social History Smoking Status: Never Smoked - CARDIAC Hx Cardiac Disorders: No Hx Peripheral Edema: Yes (ble+1) - PULMONARY Hx Respiratory Disorders: No - NEUROLOGICAL Hx Neurological Disorder: Yes Hx Seizures: (family uncertain) - HEENT Hx HEENT Problems: Yes Hx Macular Degeneration: Yes Other/Comment: injections to eye once amonth for macular degeneration - RENAL Hx Chronic Kidney Disease: No - ENDOCRINE/METABOLIC Hx Endocrine Disorders: No - HEMATOLOGICAL/ONCOLOGICAL Hx Blood Disorders: No - INTEGUMENTARY Hx Dermatological Problems: Yes Other/Comment: SKIN CANCER AROUND EYES - MUSCULOSKELETAL/RHEUMATOLOGICAL Hx Musculoskeletal Disorders: Yes (KYPHOSIS,COMPRESSION FX-THORACIC SPINE /-15 ) Hx Arthritis: Yes Hx Falls: Yes Hx Unsteady Gait: Yes - GASTROINTESTINAL Hx Gastrointestinal Disorders: No - GENITOURINARY/GYNECOLOGICAL Hx Genitourinary Disorders: (L LUMPECTOMY benign over 20 yrs ago) - PSYCHIATRIC Hx Psychophysiologic Disorder: No Hx Substance Use: No - SURGICAL HISTORY Hx Surgeries: No Other/Comment: REMOVAL OF SKIN CANCER ON FACE - ANESTHESIA Hx Anesthesia: No Meds Allergies/Adverse Reactions: Allergies Allergy/AdvReac Type Severity Reaction Status Date / Time No Known Allergies Allergy Unverified 01/04/17 14:59 - Medications Medications: Current Medications Acetaminophen (Tylenol 325mg Tab) 650 mg PO Q4H PRN PRN Reason: Pain, Mild (1-3) Oxycodone/Acetaminophen (Percocet 5/325 Mg Tab) 1 tab PO Q4H PRN PRN Reason: Pain, moderate (4-7) Stop: 01/08/17 07:35 Physical Exam - Constitutional Appears: No Acute Distress - Head Exam Head Exam: NORMOCEPHALIC - Eye Exam Eye Exam: Normal appearance. absent: Scleral icterus - ENT Exam ENT Exam: Mucous Membranes Moist - Neck Exam Neck exam: Positive for: Normal Inspection - Respiratory Exam Respiratory Exam: NORMAL BREATHING PATTERN. absent: Respiratory Distress - Cardiovascular Exam Cardiovascular Exam: +S1, +S2 - GI/Abdominal Exam GI & Abdominal Exam: Normal Bowel Sounds, Soft. absent: Distended, Guarding, Rebound, Tenderness - Extremities Exam Extremities exam: Positive for: pedal pulses present. Negative for: calf tenderness, pedal edema - Neurological Exam Neurological exam: Alert, Oriented x3 - Skin Skin Exam: Dry, Warm Results - Vital Signs Recent Vital Signs: Last Vital Signs Temp 97.6 F 01/05/17 06:00 Pulse 89 01/05/17 06:00 Resp 22 01/05/17 06:00 BP 145/77 01/05/17 06:00 Pulse Ox 99 01/05/17 06:00 - Labs Result Diagrams: 01/04/17 15:40 01/04/17 15:40 Assessment & Plan - Assessment and Plan (Free Text) Assessment: Assessment: Abdominal pain, now resolved, s/p ct scan reports distended GB and stable hypodense left adrenal nodule, suggestive adenoma. H/O Compression fracture, and fall, s/p epidural 2 days ago macular Degeneration PLAN: abdominal ultrasound diet as tolerated pain mgt Thank you for this consult and for allowing us to particiapte in your patient care, further recommendation based upon clinical course. Seen and discussed w/ Dr. Escoto. <Mark Escoto V - Last Filed: 01/06/17 22:29> Meds - Medications Medications: Current Medications Acetaminophen (Tylenol 325mg Tab) 650 mg PO Q4H PRN PRN Reason: Pain, Mild (1-3) Last Admin: 01/05/17 11:03 Dose: 650 mg Oxycodone/Acetaminophen (Percocet 5/325 Mg Tab) 1 tab PO Q4H PRN PRN Reason: Pain, moderate (4-7) Stop: 01/08/17 07:35 Last Admin: 01/05/17 20:00 Dose: 1 tab Results - Vital Signs Recent Vital Signs: Last Vital Signs Temp 97.9 F 01/05/17 16:00 Pulse 80 01/05/17 16:00 Resp 19 01/05/17 16:00 BP 120/75 01/05/17 16:00 Pulse Ox 95 01/05/17 16:00 - Labs Result Diagrams: 01/04/17 15:40 01/04/17 15:40 Attending/Attestation - Attestation I have personally seen and examined this patient.: Yes I have fully participated in the care of the patient.: Yes I have reviewed all pertinent clinical information: Yes Notes (Text): This is an addendum to GI progress report dictated by Corin Mckenzie APN.The patient was seen and examined earlier. Medical records, lab studies, imagings were reviewed. Last 24 hours events reviewed. Agreed with the above treatment plan as outlined in Corin Mckenzie APN's notes the with the addition of the following on examination abdomen soft no tenderness. Later sonogram was reviewed. Showed gallstones, CBD Endorse a diet 01/05/17 21:40
[2017-01-05] MEDS: Oxycodone/Acetaminophen 5/325 mg Tab PO PRN (20:00)
--- NOTE | 2017-01-05 23:10 | CARD ---
APPROVED REPORT EKG Measurement Heart [id number] <Conclusion> Normal sinus rhythm Normal ECG
[2017-01-06] MEDS: Oxycodone/Acetaminophen 5/325 mg Tab PO PRN ×2 (08:27→13:06)
[2017-01-06 10:08] VITALS: BP 123/71; PULSE 89; RESP 20; TEMP 98.4; O2SAT 98
--- NOTE | 2017-01-08 10:04 | DS ---
This is an 86-year-old female who came into the hospital, was having back pain. She had a epidural injection given to her by Dr. Nascimento. She said that it was not helpful. She has an advise to get followup with Dr. Nascimento for pain management and also continue with physical therapy. The patient will follow up with Dr. Nascimento and Dr. Moy. I also have spoken to the patient's daughter to give her an update on the patient's diagnosis and plan of care. I spoke with Annie, the patient does have adrenal nodule that will need to be evaluated, that is 2.1 cm. She is going to follow with Dr. Moy for this. She did write down this information while I spoke to her. PHYSICAL EXAMINATION: VITAL SIGNS: Temperature is 98.4, pulse of 89, blood pressure 123/71, respirations 20, and O2 saturations 98%. GENERAL: The patient lying in bed, uncomfortable, and in no acute distress. HEENT: Atraumatic and normocephalic. Anicteric sclerae. Moist mucosa. Hubbard conjunctivae. No oral lesions. NECK: No JVD, anterior and posterior adenopathy, thyromegaly, or bruits. CARDIOVASCULAR: S1 and S2 regular. No murmur, rubs, or gallop. LUNGS: Clear to auscultation bilaterally. No wheezes, rales, or rhonchi. ABDOMEN: Bowel sounds are positive. Soft, nontender and nondistended. No hepatosplenomegaly. No rebound and no guarding EXTREMITIES: No cyanosis, clubbing, or edema. NEUROLOGIC: No facial asymmetry. Tongue is midline. No uvula deviation. Power is 5/5 upper extremity and lower extremity. Sensation intact in upper extremity and lower extremity. PSYCHIATRIC: She is awake, alert and oriented x3. No anxiety or depression. She has normal affect. GENITOURINARY: No CVA tenderness. VASCULAR: 2+ pulses in the carotid pulses and pedal pulses. SKIN: No erythema or nodules SPINE: Shows normal curvature. EXTREMITIES: No cyanosis and clubbing, no edema. ASSESSMENT: 1. Back pain secondary to T12 and L3 fracture. 2. Adrenal nodule measuring 2.1 cm. PLAN: The patient was given the Pneumovax and influenza. She was discharged home to followup. She was also seen by Dr. Escoto. CONDITION: Stable. ACTIVITIES: Increase as tolerated. Bradley Pleitez MD
== END 2017-01-06 14:34 | disposition home or self-care (01) | DRG 544 ==
LOC: EDUNIT# → ED 14:09 → ERH 22:37 → 3RSO 01-05 01:22
PROVIDERS: ADMIT Internal Medicine Nephrology; ATTEND Internal Medicine Nephrology
DX: M48.56XA Collapsed vertebra, not elsewhere classified, lumbar region, initial encounter for fracture (principal); E27.8 Other specified disorders of adrenal gland; M48.54XA Collapsed vertebra, not elsewhere classified, thoracic region, initial encounter for fracture; H35.30 Unspecified macular degeneration; I25.10 Atherosclerotic heart disease of native coronary artery without angina pectoris; I70.0 Atherosclerosis of aorta; K80.20 Calculus of gallbladder without cholecystitis without obstruction; K82.8 Other specified diseases of gallbladder; M40.209 Unspecified kyphosis, site unspecified; M85.80 Other specified disorders of bone density and structure, unspecified site; Z85.828 Personal history of other malignant neoplasm of skin; Z91.81 History of falling; M19.90 Unspecified osteoarthritis, unspecified site; R26.81 Unsteadiness on feet